=== PATIENT | male | born 1960 | race African-American/Black ===

== ENCOUNTER 2018-07-21 15:03 | Inpatient (IN) | payer OTHER ==
[~2018-07-21] VITALS: Ht 167.6 cm; Wt 78.1 kg
--- NOTE | ~2018-07-21 | EKG ---
[place], [place] ELECTROCARDIOGRAM REPORT NAME: MIESHA TOBIAS UNIT #: [id number] ROOM: 511 DOCTOR: SOFÍA DRAFT REPORT BIRTHDATE: [birth year] [facility] Test Date: 2018-07-21 Test Time: 17:32:26 Pat Name: MIESHA TOBIAS Department: Room: 511 2 Gender: M Cisco Consultant: EKG.RI : 1960 Requested By: TOÑO GONZALEZ Order Number: [id number] Reading MD: Shashi Langford MD Measurements Intervals [place] Rate: 101 P: 70 TN: 165 QRS: 8 QRSD: 101 T: 123 QT: 318 QTc: 413 Interpretive Statements Sinus tachycardia Probable left atrial enlargement Borderline low voltage, extremity leads Nonspecific T abnormalities, lateral leads Electronically Signed On 07-21-2018 17:37:57 PST by Shashi Langford MD CM:EKGRPT:ELECTROCARDIOGRAM REPORT 1732 1737 TOÑO LIVINGSTON DRAFT REPORT TOÑO GONZALEZ DO
--- NOTE | ~2018-07-21 | EKG ---
[place], [place] ELECTROCARDIOGRAM REPORT NAME: MIESHA TOBIAS UNIT #: [id number] ROOM: [facility] DOCTOR: SOFÍA DRAFT REPORT BIRTHDATE: [birth year] [facility] Test Date: 2018-07-22 Test Time: 11:46:53 Pat Name: MIESHA TOBIAS Department: Room: [place] [address] Gender: M Car Ferrier: ANDREIA : 1960 Requested By: LUCIA TURNER Order Number: [id number] Reading MD: Shashi Langford MD Measurements Intervals [place] Rate: 85 P: 79 AL: 174 QRS: 13 QRSD: 110 T: 114 QT: 399 QTc: 475 Interpretive Statements Sinus rhythm Probable left atrial enlargement Nonspecific T abnormalities, lateral leads Compared to ECG 07/21/2018 17:32:26 Sinus tachycardia no longer present T-wave abnormality still present Electronically Signed On 07-22-2018 16:33:12 PST by Shashi Langford MD CM:EKGRPT:ELECTROCARDIOGRAM REPORT 1146 1633 LUCIA LIVINGST[place] DRAFT REPORT LUCIA TURNER DO
--- NOTE | ~2018-07-21 | CON ---
[place], [place] REPORT OF CONSULTATION NAME: MIESHA TOBIAS UNIT #: [id number] ROOM: [facility] DOCTOR: ISIDORO ZHAO MD BIRTHDATE: [birth year] DOS: 07/22/2018 CARDIOLOGY CONSULTATION REASON FOR CONSULTATION: Elevated troponin, history of heart disease, history of cocaine and alcohol abuse. HISTORY OF PRESENT ILLNESS: The patient is a 57-year-old man who has a history of polysubstance drug abuse and he presented to the hospital with complaints of anxiety and cough, asking for admission to the [facility]. The patient does admit to using crack cocaine and alcohol, and does use crack cocaine on a daily basis including on the day of admission, 07/21/2018. On admission, he was severely hypertensive and had peripheral edema with a chest x-ray that showed cardiomegaly and pulmonary vascular congestion and therefore, Cardiology was consulted. There was also concern that his troponin levels were elevated at 0.16-0.18 on multiple determinations. The patient was placed on a drug withdrawal regimen and became somnolent. He was transferred to the Intensive Care Unit for further monitoring and we saw him in the Intensive Care Unit on 07/22/2018. The patient is still very sleepy and unable to give a good history. He does admit that he has had a history of heart disease in the past and did have heart surgery in the past. Available records from the [facility] in [facility] show that he presented with chest pain in 08/2014. He was felt to have a non-ST elevation myocardial infarction due to coronary spasm from cocaine use. He was also found to have severe aortic insufficiency. He therefore underwent an aortic valve repair without replacement on 11/13/2014. His preoperative catheterization showed no coronary disease and therefore, no bypass was needed. The patient has not had any cardiac followup that I am aware of since then. PAST MEDICAL HISTORY: Includes: 1. Long-term and ongoing cocaine abuse with crack cocaine. 2. Daily alcohol use. 3. Hyperlipidemia. 4. Essential hypertension. 5. Non-ST elevation myocardial infarction in 2014 due to coronary spasm from cocaine abuse. 6. Type 2 diabetes mellitus. 7. Paranoid schizophrenia. 8. Tobacco abuse. 9. History of aortic valve repair at the [facility] on 11/13/2014. Catheterization prior to surgery showed no evidence for coronary artery disease and he did not have any bypass done. FAMILY HISTORY: The patient's father of cirrhosis. His mother also had cirrhosis. REVIEW OF SYSTEMS: The patient is too sleepy to provide an adequate review of [place], [place] REPORT OF CONSULTATION NAME: MIESHA TOBIAS UNIT #: [id number] ROOM: [facility] DOCTOR: ISIDORO ZHAO MD BIRTHDATE: [birth year] systems. He tells me that he is breathing well and denies any pain at this time. MEDICATIONS PRIOR TO ADMISSION: The patient was prescribed aspirin 81 mg per day, atorvastatin 40 mg per day, clonidine 0.1 mg t.i.d., iron sulfate 324 mg b.i.d., finasteride 5 mg daily, furosemide 40 mg daily, hydralazine 50 mg q.6 hours, hydroxyzine 25 mg q. 6 hours p.r.n., metoprolol 50 mg b.i.d., quetiapine 400 mg daily, tamsulosin 0.4 mg daily, ticagrelor 90 mg daily and trazodone 50 mg at bedtime. ALLERGIES: The chart indicates that the patient has no known drug allergies. SOCIAL HISTORY: The patient has a long-term history of alcohol, crack cocaine and cigarette abuse. PHYSICAL EXAMINATION: GENERAL: The patient is a well-nourished -[place] man who is drowsy, but arousable. His speech is slurred and he is unable to provide answers to most questions. VITAL SIGNS: Pulse is 92 and regular, blood pressure is 162/96. He is afebrile. He weighs 77.6 kg and has a body mass index of 27.6. HEENT: Normocephalic and atraumatic. Extraocular muscles are intact. Sclerae are clear. Pupils are round and react to light. The oral mucosa is moist. Tongue is midline. NECK: Supple. He does have jugular distention with hepatojugular reflux when sitting in a 45-degree angle. Carotids are full without bruits. LUNGS: Respirations are unlabored at rest. He does have rales at least half of the way up bilaterally. He had no presacral edema or chest wall tenderness. CARDIOVASCULAR: His heart had a regular rhythm with distant tones. He had a fourth heart sound as well as a third heart sound. I heard no murmurs. The PMI was displaced into the anterior axillary line. There was no precordial heave, lift or thrill. ABDOMEN: Soft and normally active without masses, organomegaly or bruits. EXTREMITIES: Showed 2+ edema to the knees. Pedal pulses were diminished. LABORATORY DATA: Sodium is 143, potassium 3.9, chloride 108, CO2 of 28, BUN 14, creatinine 1.12. Serial troponin levels are minimally elevated with a maximum troponin of 0.184. ProBNP is elevated at 4108. Hemoglobin is 13.5 with hematocrit 41.8, there are 6700 white cells and 308,000 platelets present. INR is elevated at 1.3 despite the fact that the patient is not on any anticoagulation. Echocardiogram shows normal left ventricular size with severe concentric left ventricular hypertrophy. The left ventricle is globally hypokinetic with an estimated ejection fraction of 40% and stage 3 diastolic relaxation abnormalities. The right ventricle is dilated and hypertrophied. It appears hypokinetic. The left atrium is severely enlarged. The mitral valve appears normal in structure with reduced mitral leaflet movement consistent with a low flow state. The aortic valve appears normal in structure with mild aortic insufficiency, but no stenosis. [place], [place] REPORT OF CONSULTATION NAME: MIESHA TOBIAS UNIT #: [id number] ROOM: [facility] DOCTOR: ISIDORO ZHAO MD BIRTHDATE: [birth year] IMPRESSION: 1. Admission for withdrawal from alcohol and cocaine. 2. Chronic diastolic congestive heart failure with severe left ventricular hypertrophy. It is not clear whether this is due to chronic hypertensive heart disease or an infiltrative cardiomyopathy. 3. History of aortic insufficiency, treated with aortic valve repair at the [facility] in 2014. The patient had a catheterization at that time that showed no coronary stenosis. 4. Long-term history of alcohol and cocaine abuse. PLAN: For now, we will diurese him as tolerated by his blood pressure and renal functions. Beta blockers should be avoided since he does have a history of cocaine abuse up until and including the time of admission. Once he is more stable from a clinical and neurologic point of view, further assessment of his left ventricle including the possibility of a cardiac MRI should be considered. Otherwise, guideline-directed medical therapy would be appropriate as long as beta blockers are withheld. We thank the hospitalist physicians for asking our advice regarding his care. ISIDORO ZHAO MD CM:CONSTR:REPORT OF CONSULTATION 1636 07/23/18 1050 interface
--- NOTE | ~2018-07-21 | EKG ---
[place], [place] ELECTROCARDIOGRAM REPORT NAME: MIESHA TOBIAS UNIT #: [id number] ROOM: [facility] DOCTOR: SOFÍA DRAFT REPORT BIRTHDATE: [birth year] [facility] Test Date: 2018-07-22 Test Time: 14:50:05 Pat Name: MIESHA TOBIAS Department: Room: [place] [address] Gender: M Parts Identification Technician: Ronda Badillo : 1960 Requested By: LUCIA TURNER Order Number: [id number] Reading MD: Shashi Langford MD Measurements Intervals [place] Rate: 79 P: 66 CA: 188 QRS: 14 QRSD: 92 T: 79 QT: 400 QTc: 459 Interpretive Statements Sinus rhythm Left atrial enlargement Poor precordial R-wave progression Baseline wander in lead(s) I,aVR,V4,V6 No change from earlier ECG this date Electronically Signed On 07-22-2018 16:34:27 PST by Shashi Langford MD CM:EKGRPT:ELECTROCARDIOGRAM REPORT 1450 1634 LUCIA LIVINGSTON DRAFT REPORT LUCIA TURNER DO
[~2018-07-21 15:03] MED LIST: AMLODIPINE BESY10 MG PO; ASPIRIN ADULT L81 M1 PO; Amaryl2 MG PO; DOCUSATE SOD100 MG PO; FERROUS SULFAT324 M1 PO; FLOMAX0.4 MG PO; K-TAB20 MEQ PO; LAMICTAL100 MG PO; LASIX40 MG PO; LISINOPRIL40 MG PO; METOPROLOL TART50 M1 PO; NOVOLOG MI100 UNIT/1 SQ; PROSCAR5 M1 PO; PROTONIX IV40 MG PO
[2018-07-21 17:00] VITALS: BP 208/96
--- NOTE | 2018-07-21 17:00 | NUR ---
A 57, admitted to , under the services of SHAJI Mcgowan DO with a diagnosis of ETOH AND COCAINE WITHDRAWAL. Chief complaint is WITHDRAWAL. Patient arrived via OTHER from [place]. Monitor applied. Initial assessment completed. Vital signs taken and recorded. SHAJI MCGOWAN DO notified of admission to the unit. Orders received. See assessment for past medical history, medications and allergies. Patient and/or family oriented to unit. [facility] visitation policy reviewed. Clothing/patient valuable form completed. KIERRA MOON
[2018-07-21 17:07] LABS: BASO % 0.5 % (0.0-1.0); EOS # 0.2 10*3/uL (0.0-0.4); HEMATOCRIT 40.5 % (42.0-52.0); HEMOGLOBIN 13.1 g/dl (14.0-18.0); LYMPH # 1.7 10*3/uL (1.3-4.4); LYMPH % 22.5 % (27.0-41.0); MEAN CELL VOLUME 84.9 fl (80.0-94.0); MEAN CORPUSCULAR HGB 27.5 pg (27.0-31.0); MEAN CORPUSCULAR HGB CONC 32.3 g/dl (33.0-37.0); MEAN PLATELET VOLUME 8.9 fl (9.6-12.3); MONO # 0.5 10*3/uL (0.1-1.0); MONO % 6.3 % (3.0-9.0); NEUT % 67.4 % (47.0-73.0); PLATELET COUNT AUTOMATED 298 10*3/uL (130-400); RED BLOOD COUNT 4.77 10*6/uL (4.50-5.90); RED CELL DISTRI WIDTH 16.9 % (0-14.5); WHITE BLOOD COUNT 7.4 10*3/uL (4.8-10.8)
[2018-07-21 17:15] LABS: INTERNATIONAL NORM RATIO 1.2 (2.0-3.5)
[2018-07-21 17:21] LABS: ALBUMIN 2.4 gm/dl (3.1-4.5); ALKALINE PHOSPHATASE 421 U/L (45-117); BUN 16 mg/dl (7-24); CHLORIDE 107 mmol/L (98-107); CREATININE 1.13 mg/dL (0.70-1.30); POTASSIUM 4.6 mmol/L (3.5-5.1); SGOT/AST 19 IU/L (3-35); SGPT/ALT 28 U/L (12-78); SODIUM 140 mmol/L (136-145); TOTAL PROTEIN 6.5 gm/dL (6.4-8.2)
[2018-07-21] MEDS ORDERED: BRILINTA90 M1 PO (17:47)
[2018-07-21] MEDS ORDERED: TRAZODONE50 MG PO (17:48)
[2018-07-21] MEDS ORDERED: QUETIAPINE FUM400 M1 PO (17:48)
[2018-07-21] MEDS ORDERED: ATORVASTATIN CA40 M1 PO (17:49)
[2018-07-21] MEDS ORDERED: HYDRALAZINE HYD50 MG PO (17:49)
[2018-07-21] MEDS ORDERED: HYDROXYZINE PAM25 M1 PO (17:49)
[2018-07-21] MEDS ORDERED: 'CLONIDINE0.1 MG PO (17:50)
--- NOTE | 2018-07-21 18:07 | NUR ---
PATIENT CAME IN WITH A HIGH BP. 200/100. THE PATIENT WAS GIVEN AN IV ORDER OF HYDRAZALINE IV. THE BP WAS RECHECKED MANUALLY AT 1800. RECHECK BP WAS 178/90. DR. GONZALEZ WAS NOTIFIED AND STATED TO GIVE THE BUMEX THAT WAS ORDERED, HOLD THE BANANA BAG, AND GIVE THE PATIENTS MORNING VITAMINS NOW.
[2018-07-21 20:00] VITALS: BP 164/98; BP 179/95
--- NOTE | 2018-07-21 20:30 | NUR ---
PATIENT UNSTEADY ON FEET NOT FOLLOWING DIRECTIONS TO STAY IN BED. PATIENT CONFUSED TO PLACE SAYING HE IS IN [place] AT[place]AN GIVEN PER PRN BALWINDER AND DOCTOR ARTUR INFORM AT 775
[2018-07-21 20:58] LABS: BILIRUBIN NEGATIVE (NEGATIVE); BLOOD 1+ (NEGATIVE); CLARITY CLEAR (CLEAR); COLOR YELLOW (YELLOW); GLUCOSE 1+ (NEGATIVE); KETONE NEGATIVE (NEGATIVE); LEUKO ESTERASE NEGATIVE (NEGATIVE); NITRITE NEGATIVE (NEGATIVE); UROBILINOGEN 0.2 E.U./dl (0.2-1.0)
[2018-07-21 21:38] LABS: EPITHELIAL CELLS 0-2; WBC 0-2 wbc/hpf (0-5)
[2018-07-21 22:27] LABS: URINE AMPHETAMINES < 1000 (1000ng/ml); URINE BARBITURATES > 200 (200ng/ml); URINE BENZODIAZEPINES < 200 (200ng/ml); URINE CANNABINOIDS (THC) < 50 (50ng/ml); URINE COCAINE > 300 (300ng/ml); URINE METHADONE < 300 (300ng/ml); URINE OPIATES < 300 (300ng/ml); URINE PHENCYCLIDINE < 25 (25ng/ml)
--- NOTE | 2018-07-21 23:06 | NUR ---
DR. HOWARD NOTIFIED OF CRITICAL TROPONIN OF 0.161.
[2018-07-22] VITALS: BP 112/67
--- NOTE | 2018-07-22 01:56 | NUR ---
DR. HOWARD NOTIFIED OF CRITICAL TROPONIN OF 0.176.
--- NOTE | 2018-07-22 03:59 | NUR ---
RESTING IN BED WITH EYES CLOSED. NO SIGNS OR SYMPTOMS OF DISTRESS NOTED. RESPIRATION REGULAR AND NON-LABORED. CALL LIGHT IN REACH. SET ALARM OFF SEVERAL TIMES TO STAND AND USE THE URINAL. URINATED ALL OVER THE FLOOR THEN GOT BACK IN BED AND WAS SNORING. DOES NOT ANSWER QUESTIONS WHEN ASKED. WILL CONTINUE TO MONITOR.
[2018-07-22 05:26] LABS: BUN 16 mg/dl (7-24); CHLORIDE 110 mmol/L (98-107); CREATININE 1.03 mg/dL (0.70-1.30); POTASSIUM 3.9 mmol/L (3.5-5.1); SODIUM 143 mmol/L (136-145)
--- NOTE | 2018-07-22 05:36 | NUR ---
NOTIFIED DR. HOWARD OF CRITICAL TROPONIN
--- NOTE | 2018-07-22 05:39 | NUR ---
DR. ZHAO'S ANSWERING SERVICE NOTIFIED OF CONSULT FOR ELEVATED TROPONINS FOR PATIENT.
--- NOTE | 2018-07-22 08:00 | NUR ---
PATIENT WAS ASSESSED AND WAS VERY LATHARGIC AND ALERT TO ONLY HIMSELF. AT THIS MOMENT HE HAS NO VISABLE TREMORS, BP IS STABLE AND HEART RATE IS STILL TACHY. DR. MOORE WAS NOTIFIED OF THE PATIENT AND STATED HE WOULD GO CHECK ON THE PATIENT. AT THIS TIME THE PLAN IS TO MOVE THE PATIENT CLOSER TO THE NURSING DESK.
--- NOTE | 2018-07-22 08:17 | NUR ---
NOTIFIED DR. MOORE OF CRITICAL TROP
--- NOTE | 2018-07-22 08:31 | NUR ---
PATIENT MEETS [facility], CINA=15, CIWA-AR= 15. PATIENT IS INTERESTED IN GOING TO AN INPATIENT TREATMENT FACILITY ONCE DISCHARGED. FANNY DANIEL MS ENGRAVER HAND [employer]
[2018-07-22 11:15] VITALS: BP 148/88
--- NOTE | 2018-07-22 11:15 | NUR ---
PT TRANSFERED TO ICCU BED 7 AT THIS TIME. PT IS DROWSY BY WAKES WITH VERBAL STIMULI AND IS ANSWERING QUESTIONS APPROPRIATLEY. NSR RATE 85. BP 148/88. POX 92% ON ROOM AIR. AFEBRILE 97.5.
--- NOTE | 2018-07-22 11:30 | NUR ---
PATIENT WAS TRANSFERED TO ICU. REPORT WAS GIVEN TO IBAN ICU NURSE. NO CONCERNS AT THIS TIME.
[2018-07-22 11:58] LABS: BASO # 0.1 10*3/uL (0.0-0.1); BASO % 0.7 % (0.0-1.0); EOS # 0.4 10*3/uL (0.0-0.4); EOS % 5.5 % (1.0-4.0); HEMATOCRIT 41.8 % (42.0-52.0); HEMOGLOBIN 13.5 g/dl (14.0-18.0); LYMPH % 29.6 % (27.0-41.0); MEAN CELL VOLUME 83.9 fl (80.0-94.0); MEAN CORPUSCULAR HGB 27.1 pg (27.0-31.0); MEAN CORPUSCULAR HGB CONC 32.3 g/dl (33.0-37.0); MEAN PLATELET VOLUME 9.3 fl (9.6-12.3); MONO # 0.6 10*3/uL (0.1-1.0); MONO % 8.5 % (3.0-9.0); NEUT # 3.7 10*3/uL (2.3-7.9); NEUT % 55.4 % (47.0-73.0); PLATELET COUNT AUTOMATED 308 10*3/uL (130-400); RED BLOOD COUNT 4.98 10*6/uL (4.50-5.90); WHITE BLOOD COUNT 6.7 10*3/uL (4.8-10.8)
[2018-07-22 12:06] LABS: ACT PARTIAL THROMBO TIME 27.1 SECONDS (20.8-31.5); INTERNATIONAL NORM RATIO 1.3 (2.0-3.5)
[2018-07-22 12:13] LABS: ALBUMIN 2.3 gm/dl (3.1-4.5); ALKALINE PHOSPHATASE 377 U/L (45-117); BUN 14 mg/dl (7-24); CHLORIDE 108 mmol/L (98-107); CREATININE 1.12 mg/dL (0.70-1.30); GAMMA GLUTAMYL TRANSPEPTIDASE 427 U/L (15-85); PHOSPHOROUS 2.3 mg/dL (2.5-4.9); POTASSIUM 3.9 mmol/L (3.5-5.1); SGOT/AST 20 IU/L (3-35); SGPT/ALT 24 U/L (12-78); SODIUM 143 mmol/L (136-145); TOTAL PROTEIN 6.2 gm/dL (6.4-8.2)
[2018-07-22 12:15] LABS: TROPONIN I 0.158 ng/ml (<0.045)
[2018-07-22 16:21] VITALS: BP 140/90
[2018-07-22 20:00] VITALS: BP 174/92
[2018-07-22 22:24] VITALS: BP 131/82
[2018-07-23 04:00] VITALS: BP 130/87
[2018-07-23 05:52] LABS: ALBUMIN 1.9 gm/dl (3.1-4.5); BUN 15 mg/dl (7-24); CHLORIDE 108 mmol/L (98-107); CREATININE 1.16 mg/dL (0.70-1.30); PHOSPHOROUS 2.9 mg/dL (2.5-4.9); POTASSIUM 3.9 mmol/L (3.5-5.1); SGOT/AST 13 IU/L (3-35); SGPT/ALT 22 U/L (12-78); SODIUM 142 mmol/L (136-145)
[2018-07-23 05:54] LABS: ALKALINE PHOSPHATASE 343 U/L (45-117); TOTAL PROTEIN 5.6 gm/dL (6.4-8.2)
[2018-07-23 06:10] LABS: BASO # 0.1 10*3/uL (0.0-0.1); EOS # 0.4 10*3/uL (0.0-0.4); EOS % 6.7 % (1.0-4.0); HEMOGLOBIN 12.6 g/dl (14.0-18.0); LYMPH % 33.8 % (27.0-41.0); MEAN CELL VOLUME 84.7 fl (80.0-94.0); MEAN CORPUSCULAR HGB 26.7 pg (27.0-31.0); MEAN CORPUSCULAR HGB CONC 31.5 g/dl (33.0-37.0); MEAN PLATELET VOLUME 9.7 fl (9.6-12.3); MONO # 0.6 10*3/uL (0.1-1.0); MONO % 10.6 % (3.0-9.0); NEUT # 2.8 10*3/uL (2.3-7.9); NEUT % 47.6 % (47.0-73.0); PLATELET COUNT AUTOMATED 317 10*3/uL (130-400); RED BLOOD COUNT 4.72 10*6/uL (4.50-5.90); RED CELL DISTRI WIDTH 17.1 % (0-14.5); WHITE BLOOD COUNT 5.8 10*3/uL (4.8-10.8)
[2018-07-23 08:00] VITALS: BP 150/88
--- NOTE | 2018-07-23 08:46 | NUR ---
Unsteady, drooling. Assisted to urinate and then to chair for breakfast. Due to inadequate staffing , Employee Relation Manager Lizette was notified of high fall risk and inability to adequately supervisr pt. . She was informed that I would not be able to assume responsibility and she stated she would assume responibility for fall.
[2018-07-23 12:00] VITALS: BP 153/89
[2018-07-23 16:00] VITALS: BP 128/77
--- NOTE | 2018-07-23 16:29 | NUR ---
Awakened for VS , States " I'm hungry" Supper ordered. Remains sidelying with head covered.
--- NOTE | 2018-07-23 16:35 | NUR ---
Dr. Gómez was notified of non-formulary Brilinta, he spoke with pharmacy and formulary adjustment was made.
[2018-07-23 20:00] VITALS: BP 148/95
[2018-07-24] VITALS: BP 136/80
[2018-07-24 04:00] VITALS: BP 122/63
[2018-07-24 05:30] LABS: BASO # 0.1 10*3/uL (0.0-0.1); BASO % 1.1 % (0.0-1.0); EOS # 0.4 10*3/uL (0.0-0.4); EOS % 6.9 % (1.0-4.0); HEMATOCRIT 36.2 % (42.0-52.0); HEMOGLOBIN 11.3 g/dl (14.0-18.0); LYMPH # 1.6 10*3/uL (1.3-4.4); LYMPH % 29.1 % (27.0-41.0); MEAN CORPUSCULAR HGB 26.2 pg (27.0-31.0); MEAN CORPUSCULAR HGB CONC 31.2 g/dl (33.0-37.0); MEAN PLATELET VOLUME 9.9 fl (9.6-12.3); MONO # 0.6 10*3/uL (0.1-1.0); MONO % 11.9 % (3.0-9.0); NEUT # 2.7 10*3/uL (2.3-7.9); NEUT % 50.4 % (47.0-73.0); PLATELET COUNT AUTOMATED 314 10*3/uL (130-400); RED BLOOD COUNT 4.31 10*6/uL (4.50-5.90); RED CELL DISTRI WIDTH 17.2 % (0-14.5); WHITE BLOOD COUNT 5.4 10*3/uL (4.8-10.8)
[2018-07-24 05:47] LABS: BUN 14 mg/dl (7-24); CHLORIDE 111 mmol/L (98-107); CREATININE 1.25 mg/dL (0.70-1.30); POTASSIUM 3.5 mmol/L (3.5-5.1); SODIUM 146 mmol/L (136-145)
[2018-07-24 08:00] VITALS: BP 148/95
--- NOTE | 2018-07-24 09:14 | NUR ---
Awakened for VS , speech slurred, Requested and was given breakfast x 2 meals. Assisted up to chair for breakfast. Body alarm on while in chair.
[2018-07-24 12:00] VITALS: BP 142/96
[2018-07-24 16:00] VITALS: BP 137/91
[2018-07-24 20:00] VITALS: BP 113/69
--- NOTE | 2018-07-24 21:20 | NUR ---
MEDICATED WITH DESYREL, VISTARIL, AND ROBAXIN FOR S/S OF WITHDRAWL.
[2018-07-25] VITALS: BP 114/57
--- NOTE | 2018-07-25 00:18 | NUR ---
VS TAKEN AND RECORDED. ATIVAN PO FOR REST. WILL MONITOR. HEP LOCK INTACT. NO DISTRESS NOTED. ALERT.
--- NOTE | 2018-07-25 01:40 | NUR ---
ATIVAN EFFECTIVE. RESTING IN BED WITH EYES CLOSED. APPEARS TO BE SLEEPING.
[2018-07-25 04:28] LABS: BASO # 0.1 10*3/uL (0.0-0.1); BASO % 0.8 % (0.0-1.0); EOS # 0.4 10*3/uL (0.0-0.4); EOS % 6.4 % (1.0-4.0); HEMATOCRIT 35.8 % (42.0-52.0); HEMOGLOBIN 11.6 g/dl (14.0-18.0); LYMPH # 2.1 10*3/uL (1.3-4.4); LYMPH % 34.5 % (27.0-41.0); MEAN CELL VOLUME 83.6 fl (80.0-94.0); MEAN CORPUSCULAR HGB 27.1 pg (27.0-31.0); MEAN CORPUSCULAR HGB CONC 32.4 g/dl (33.0-37.0); MEAN PLATELET VOLUME 9.5 fl (9.6-12.3); MONO # 0.6 10*3/uL (0.1-1.0); MONO % 10.3 % (3.0-9.0); NEUT # 2.8 10*3/uL (2.3-7.9); NEUT % 47.5 % (47.0-73.0); PLATELET COUNT AUTOMATED 292 10*3/uL (130-400); RED BLOOD COUNT 4.28 10*6/uL (4.50-5.90); RED CELL DISTRI WIDTH 17.2 % (0-14.5)
[2018-07-25 04:39] LABS: BUN 16 mg/dl (7-24); CHLORIDE 110 mmol/L (98-107); CREATININE 1.22 mg/dL (0.70-1.30); POTASSIUM 3.5 mmol/L (3.5-5.1); SODIUM 147 mmol/L (136-145)
--- NOTE | 2018-07-25 06:11 | NUR ---
SLEPT WELL THIS SHIFT. REMAINS WIHTOUT C/O'S. CONDITION GUARDED.
[2018-07-25 08:00] VITALS: BP 118/80
--- NOTE | 2018-07-25 08:00 | NUR ---
RESTING IN BED. DENIES ANY COMPLAINTS. BREAKFAST ORDERED. VITALS STABLE. PULSE OX 99% ON ROOM AIR. 1+ EDEMA NOTED TO BILATERAL LOWER LEGS.
[2018-07-25] MEDS ORDERED: LISINOPRIL10 M1 PO (12:34)
[2018-07-25] MEDS ORDERED: FLOMAX0.4 MG PO (12:34)
[2018-07-25] MEDS ORDERED: BRILINTA90 M1 PO (12:34)
[2018-07-25] MEDS ORDERED: CLOPIDOGREL75 MG PO (12:34)
[2018-07-25] MEDS ORDERED: HYDROXYZINE PAM25 M1 PO (12:34)
[2018-07-25] MEDS ORDERED: PROSCAR5 M1 PO (12:34)
[2018-07-25] MEDS ORDERED: HYDRALAZINE HYD50 MG PO (12:34)
[2018-07-25] MEDS ORDERED: FEROSUL325 MG PO (12:34)
[2018-07-25] MEDS ORDERED: ATORVASTATIN CA40 M1 PO (12:34)
[2018-07-25] MEDS ORDERED: COREG3.125 MG PO (12:34)
[2018-07-25] MEDS ORDERED: ALDACTONE25 MG PO (12:34)
[2018-07-25] MEDS ORDERED: QUETIAPINE FUM400 M1 PO (12:34)
[2018-07-25] MEDS ORDERED: METFORMIN HCL500 M3 PO (12:34)
[2018-07-25] MEDS ORDERED: TRAZODONE50 MG PO (12:34)
[2018-07-25] MEDS ORDERED: BUMETANIDE1 MG PO (12:34)
--- NOTE | 2018-07-25 13:06 | NUR ---
DISCHARGED TO [facility] FROM [place]. MED'S FROM HOME SENT WITH PATIENT, ALONG WITH NEW SCRIPTS FOR RECENT MED'S. BELONGINGS SENT WITH PATIENT
== END 2018-07-25 13:06 | DRG 896 ==
LOC: ICCU 15:03 → 5E 15:03 → ICCU 07-22 11:08
PROVIDERS: Family Medicine; Internal Medicine; Student in an Organized Health Care Education/Training Program; ADMIT Internal Medicine
DX: F11.23 Opioid dependence with withdrawal (principal); J96.00 Acute respiratory failure, unspecified whether with hypoxia or hypercapnia; E43 Unspecified severe protein-calorie malnutrition; J81.0 Acute pulmonary edema; G93.41 Metabolic encephalopathy; R65.11 Systemic inflammatory response syndrome (SIRS) of non-infectious origin with acute organ dysfunction; F20.0 Paranoid schizophrenia; I24.8 Other forms of acute ischemic heart disease; D68.9 Coagulation defect, unspecified; I50.40 Unspecified combined systolic (congestive) and diastolic (congestive) heart failure; I42.9 Cardiomyopathy, unspecified; F10.239 Alcohol dependence with withdrawal, unspecified; I16.0 Hypertensive urgency; E66.3 Overweight; F41.9 Anxiety disorder, unspecified; N40.0 Benign prostatic hyperplasia without lower urinary tract symptoms; I25.10 Atherosclerotic heart disease of native coronary artery without angina pectoris; E78.5 Hyperlipidemia, unspecified; F14.10 Cocaine abuse, uncomplicated; F17.200 Nicotine dependence, unspecified, uncomplicated; E11.65 Type 2 diabetes mellitus with hyperglycemia; R74.8 Abnormal levels of other serum enzymes; E83.39 Other disorders of phosphorus metabolism; I34.0 Nonrheumatic mitral (valve) insufficiency; I07.1 Rheumatic tricuspid insufficiency; Z79.4 Long term (current) use of insulin; Z71.6 Tobacco abuse counseling; Z95.1 Presence of aortocoronary bypass graft; Z84.89 Family history of other specified conditions; Z79.82 Long term (current) use of aspirin; Z68.29 Body mass index [BMI] 29.0-29.9, adult; I11.0 Hypertensive heart disease with heart failure